=== PATIENT | female | born 2000 | race Caucasian/White ===

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

== ENCOUNTER 2018-01-04 12:12 | Emergency (ER) | payer OTHER ==
[2018-01-04 12:56] VITALS: BP 119/61
--- NOTE | 2018-01-04 13:28 | UC ---
UC General HPI - HPI Summary HPI Summary: Patient is complaining of "left rib pain" for 2 years. Pt gestures to her L anterior lower ribs and LUQ. She states that the discomfort is intermittent. She states that she's had x-rays and an ultrasound by Dr. Mclaughlin, pediatric GI in [place] but that was done 2 years ago. She states that he diagnosed with a hiatal hernia. She presents today because the discomfort has been getting progressively worse. She notes the discomfort mostly after meals and it was especially worse this morning and was radiating into her back. She does note that it feels better now. She did not eat this morning but admits to having had deep-fried kinyarwanda fries last evening. Patient admits to a history of reflux and is to take omeprazole. She admits that she's been taking the omeprazole sporadically as of late. She denies any associated history of injury , cough, short of breath as well as any nausea, vomiting, diarrhea and fever. Patient states that she is awaiting a follow-up appointment with primary care in [place] but they were unable to see her today and her appointment is 1 month away. Patient has no associated blood in her vomit or stool. - History of Current Complaint Chief Complaint: UCBackPain Stated Complaint: LEFT RIB PAIN Time Seen by Provider: 01/04/18 12:58 Hx Obtained From: Patient Hx Last Menstrual Period: 12/29/17 Pain Intensity: 7 Associated Signs & Symptoms: Positive: Abdominal Pain, Back Pain. Negative: Cough, Diarrhea, Dysuria, Fever, Hematemesis, Nausea, Vomiting - Allergy/Home Medications Allergies/Adverse Reactions: Allergies Allergy/AdvReac Type Severity Reaction Status Date / Time No Known Allergies Allergy Verified 01/04/18 12:53 PMH/Surg Hx/FS Hx/Imm Hx - Additional Past Medical History Additional PMH: Scoliosis GI/ History: Kidney Stones - Surgical History Surgical History: None - Family History Known Family History: Positive: Cardiac Disease, Hypertension, Diabetes - Social History Lives: With Family Alcohol Use: None Substance Use Type: None Smoking Status (MU): Never Smoked Tobacco - Immunization History Vaccination Up to Date: Yes Review of Systems Constitutional: Negative Skin: Negative Eyes: Negative ENT: Negative Respiratory: Negative Cardiovascular: Negative Gastrointestinal: Abdominal Pain Genitourinary: Negative Motor: Negative Neurovascular: Negative Musculoskeletal: Other: - Back pain, L rib pain. Neurological: Negative Psychological: Negative Is Patient Immunocompromised?: No All Other Systems Reviewed And Are Negative: Yes Physical Exam Triage Information Reviewed: Yes Appearance: Well-Appearing Vital Signs: Initial Vital Signs Temp 97.8 F 01/04/18 12:49 Pulse 63 01/04/18 12:49 Resp 14 01/04/18 12:49 BP 119/61 01/04/18 12:49 Pulse Ox 100 01/04/18 12:49 Vital Signs Reviewed: Yes Eyes: Positive: Conjunctiva Clear ENT: Positive: Pharynx normal, TMs normal. Negative: Nasal congestion, Nasal drainage Neck: Positive: Supple, Nontender, No Lymphadenopathy Respiratory: Positive: Chest non-tender, Lungs clear, Normal breath sounds, No accessory muscle use Cardiovascular: Positive: RRR, No Murmur, Pulses Normal - BUE's Abdomen Description: Positive: Nontender, No Organomegaly, Soft. Negative: CVA Tenderness (R), CVA Tenderness (L), Distended, Guarding, Hepatomegaly, Pulsatile Mass, Splenomegaly Bowel Sounds: Positive: Present Musculoskeletal: Positive: No Edema - No cords and no calf tenderness to either lower extremity., Other: - Inspection cervical thoracic and lumbar spine shows curvature consistent with patient's scoliosis. Spinous processes are nontender to palpation. She is 5 out of 5 strength and 2+ reflexes 4. Superficial sensation to touch is intact 4. she is no saddle anesthesia. She has normal steady gait. Neurological: Positive: Alert Psychological: Positive: Normal Response To Family, Age Appropriate Behavior Skin Exam: Normal Skin: Negative: rashes Diagnostics - Laboratory Diagnostic Studies Completed/Ordered: U/A= trace blood and 1+ leuk asters no frequency urgency or burning with urination. No fever and no CVA tenderness the same no concern for pyelonephritis; however, urine culture is pending. Urine hCG is negative. Course/Dx - Course Course Of Treatment: Patient's back exam is consistent with a past medical history of scoliosis otherwise no concern for cauda equina or fracture. Patient 's abdominal exam is unremarkable, she does not have an acute abdomen; however, her history is suggestive of possible GI pathology causing her episodic signs and symptoms SDF follow-up as being advised. Patient's lungs are equal and clear she is not tachycardic or tachypneic. She has no dyspnea and no hypoxia plus her chest wall is nontender as they have no concern for acute cardiopulmonary pathology. - Differential Dx - Multi-Symptom Provider Diagnoses: Back pain. Episodic left upper quadrant/left lower anterior rib discomfort. Discharge - Sign-Out/Discharge Documenting (check all that apply): Patient Departure All imaging exams completed and their final reports reviewed: No Studies - Discharge Plan Condition: Stable Disposition: HOME Patient Education Materials: Acute Abdominal Pain (DC), Diet for Stomach Ulcers and Gastritis (ED) Referrals: Nilda Rivera PA [Primary Care Provider] - As Soon As Possible Additional Instructions: DIAGNOSIS: Episodic L upper abdomen/Lower anterior rib pain. Back pain. Go to the ER for recurrent pain or worsening. Follow a bland diet(stomach ulcer diet). Resume the Prilosec daily. - Billing Disposition and Condition Condition: STABLE Disposition: Home
== END 2018-01-04 14:03 | disposition home or self-care (01) ==
LOC: UCCORT 12:12
DX: M54.9 Dorsalgia, unspecified (principal); M41.9 Scoliosis, unspecified; R10.12 Left upper quadrant pain; R10.32 Left lower quadrant pain
CPT/HCPCS: 81003; 84702; 87077; 87086; 99211; G0463

== ENCOUNTER 2018-09-07 14:56 | Emergency (ER) | payer OTHER ==
[2018-09-07 15:29] VITALS: BP 119/71
--- NOTE | 2018-09-07 15:40 | ED ---
Abdominal Pain/Female - HPI Summary HPI Summary: pt presents for evaluation of her abdominal pain. she states that she wakes up in the am with epigastric discomfort. she takes her carafate and she states that it does not want to go down. the rest of the day she is fine. she is able to eat and drink with out difficulty. she has not lost any weight. she had endoscopy done approx [address] Rowland did it. she has not had a follow up appt since. - History of Current Complaint Chief Complaint: UCChestPain Stated Complaint: LEFT RIB PAIN Hx Obtained From: Patient Hx Last Menstrual Period: 07/15/18 Onset/Duration: Gradual Onset Timing: Intermittent Episode Lasting Pain Intensity: 8 Allergies/Adverse Reactions: Allergies Allergy/AdvReac Type Severity Reaction Status Date / Time No Known Allergies Allergy Verified 09/07/18 15:30 Home Medications: Home Medications Omeprazole 20 mg PO BID 09/07/18 [History Confirmed 09/07/18] Sucralfate TAB* [Carafate*] 1 gm PO QID PRN 09/07/18 [History Confirmed 09/07/18 ] PMH/Surg Hx/FS Hx/Imm Hx Previously Healthy: Yes - Surgical History Surgery Procedure, Year, and Place: gall bladder 01/27/18 [facility] Infectious Disease History: No Infectious Disease History: Denies: Traveled Outside the [place] in Last 30 Days - Family History Known Family History: Positive: Cardiac Disease, Hypertension, Diabetes - Social History Alcohol Use: None Substance Use Type: Reports: None Smoking Status (MU): Never Smoked Tobacco Review of Systems Constitutional: Negative Eyes: Negative ENT: Negative Cardiovascular: Negative Respiratory: Negative Positive: Abdominal Pain, Nausea. Negative: Vomiting, Diarrhea Genitourinary: Negative Musculoskeletal: Negative Skin: Negative Neurological: Negative Psychological: Normal All Other Systems Reviewed And Are Negative: No Physical Exam Triage Information Reviewed: Yes Vital Signs On Initial Exam: Initial Vitals Temp Pulse Resp BP Pulse Ox 98.6 F 82 20 119/71 98 09/07/18 15:18 09/07/18 15:18 09/07/18 15:18 09/07/18 15:18 09/07/18 15:18 Vital Signs Reviewed: Yes Appearance: Positive: Well-Appearing, No Pain Distress, Well-Nourished Skin: Positive: Warm, Dry Head/Face: Positive: Normal Head/Face Inspection Eyes: Positive: Normal, EOMI ENT: Positive: Normal ENT inspection, Hearing grossly normal, Pharynx normal Neck: Positive: Supple, Nontender Respiratory/Lung Sounds: Positive: Clear to Auscultation, Breath Sounds Present Cardiovascular: Positive: Normal, RRR Abdomen Description: Positive: Nontender, Soft Bowel Sounds: Positive: Present Musculoskeletal: Positive: Normal, Strength/ROM Intact Neurological: Positive: Normal, Sensory/Motor Intact, Alert, Oriented to Person Place, Time, CN Intact II-III Psychiatric: Positive: Normal AVPU Assessment: Alert Diagnostics - Vital Signs Vital Signs Temp Pulse Resp BP Pulse Ox 09/07/18 15:18 98.6 F 82 20 119/71 98 - Laboratory Lab Statement: Any lab studies that have been ordered have been reviewed, and results considered in the medical decision making process. Abdominal Pain Fem Course/Dx - Course Course Of Treatment: I discussed with pt her symptoms. she had an upper endoscopy [address] Rowland. she states she was prescribed carafate. she states in the am when she wakes up it does not go down. she is able to eat throughout the rest of hte day without any difficulty. pt's exam is benign. I encouraged her to f/u with her pcp and GI doctor. - Diagnoses Provider Diagnoses: GERD (gastroesophageal reflux disease) Discharge - Sign-Out/Discharge Documenting (check all that apply): Patient Departure All imaging exams completed and their final reports reviewed: No Studies - Discharge Plan Condition: Stable Disposition: HOME Patient Education Materials: Gastroesophageal Reflux Disease (DC) Forms: *Work Release Referrals: Nilda Rivera PA [Primary Care Provider] - Additional Instructions: Please follow up with your pcp and GI. return if worse or any new symptoms. Take all medications as previously instructed. - Billing Disposition and Condition Condition: STABLE Disposition: Home
== END 2018-09-07 15:20 | disposition home or self-care (01) ==
LOC: UCCORT 14:56
DX: K21.9 Gastro-esophageal reflux disease without esophagitis (principal)
CPT/HCPCS: 99211; G0463